=== PATIENT | male | born 1955 | race Caucasian/White ===

== ENCOUNTER 2017-10-27 11:00 | Day surgery (SDC) | payer OTHER ==
[~2017-10-27] VITALS: Ht 182.9 cm; Wt 97.5 kg
[~2017-10-27 11:00] MED LIST: CARVEDILOL25 MG PO; INDERAL LA80 MG PO; LOSARTAN POTASS25 MG PO; OMEPRAZOLE20 MG PO; PROPRANOLOL; SYNTHROID50 MCG PO
--- NOTE | 2017-10-27 13:10 | NUR ---
10/27/17 1310 Milagros Briggs 1258 PT ARRIVED TO PACU WITH NC IN PLACE AT 2L. RESP EVEN AND UNLABORED. PT WOKE TO TACTILE STIMULI AND REPORTED GAS/BLOATING IN ABD. PT ENCOURAGED TO PASS GAS/AIR. 1308 PT ABLE TO PASS LARGE AMOUNTS OF GAS/AIR. 1310 AT BEDSIDE, O2 REMOVED, O2 SAT 100%.
--- NOTE | 2017-10-27 18:57 | OR ---
[facility] [address] [place], [place] [address] Signed DATE OF OPERATION: 10/27/2017 SURGEON: Matthew Pal MD PREOPERATIVE DIAGNOSES: 1. History of tubular adenomas x3, May 2016. 2. Dilated cardiomyopathy. POSTOPERATIVE DIAGNOSES: 1. Sigmoid and left-sided diverticulosis. 2. Polyps x2 (transverse and hepatic flexure). PROCEDURE: Total colonoscopy to cecum with cold morcellation polypectomy x2. ANESTHESIA: Intravenous sedation, propofol infusion; Mo Fuentes CRNA. INDICATION: This 62-year-old white man is a former patient of Dr. Fernandez, now Dr. Torres. He underwent colonoscopy by me in May 2016, and was found to have three tubular adenomas. He was admitted for surveillance colonoscopy at this time. Notably, he is free of symptoms of bleeding, diarrhea, or constipation. He has developed a dilated cardiomyopathy and is managed expectantly currently. He is admitted to undergo colonoscopy. He understands the risks of bleeding, infection, and perforation. FINDINGS: The prep was excellent. Complete colonoscopy was undertaken to the cecum without question. Ileocecal valve and appendiceal orifice were normal. He had numerous diverticula of the sigmoid and left colon, and a few scattered diverticula more proximally. He had 2 small polyps, neither of them worrisome for malignancy. Both were excised fully, one in the mid transverse colon, the other in the hepatic flexure. DESCRIPTION OF PROCEDURE: The patient was brought to the endoscopy suite and placed in lateral decubitus position, given intravenous sedation to the point of slurred speech and nystagmus. Propofol infusional anesthesia was given by the smart energy specialist with full cardiopulmonary monitoring. Digital rectal examination was found to be normal. Electronically Signed By: MATTHEW PAL MD 10/27/17 1857 PATIENT NAME: AFSHAN GARCIA OPERATIVE REPORT DATE OF : 57 REPORT #: [id number] PHYSICIAN: MATTHEW PAL MD PCP: SALAZAR TORRES MD REPORT IS CONFIDENTIAL AND NOT TO BE RELEASED WITHOUT AUTHORIZATION [facility] [address] [place], [place] [address] Signed The Olympus video colonoscope was passed in the rectum and manipulated throughout the colon. Diverticula were noted in the sigmoid and left colon. At about the hepatic flexure, was a small relatively flat, but clearly a real polyp about 5 mm in size. This was excised with cold morcellation polypectomy technique. The scope was advanced beyond the hepatic flexure, ultimately to the cecum, which appeared normal. The scope was withdrawn. Careful examination throughout undertaken showing no sign of abnormality until the transverse colon in the left portion where another small polyp was noted. This was probably hyperplastic. It was excised with cold morcellation technique. Further withdrawal of scope confirmed numerous diverticula of the left colon and sigmoid. No sign of polyps there. Retroflexed view of the rectum was normal. Scope was straightened and withdrawn and removed, and the patient was taken to recovery room in good condition. CONCLUDING DIAGNOSES: 1. Polyps x2. 2. Diverticulosis. PLAN: Recommend repeat colonoscopy in 5 years or sooner if clinically indicated. Recommend high-fiber diet. He will return to the ongoing care of Dr. Torres. Matthew Pal MD JM/MODL /[id number] cc: Salazar Torres MD Copies: SALAZAR TORRES MD ~ Electronically Signed By: MATTHEW PAL MD 10/27/17 1857 PATIENT NAME: AFSHAN GARCIA OPERATIVE REPORT DATE OF : 57 REPORT #: [id number] PHYSICIAN: MATTHEW PAL MD PCP: SALAZAR TORRES MD REPORT IS CONFIDENTIAL AND NOT TO BE RELEASED WITHOUT AUTHORIZATION
== END 2017-10-27 13:40 | disposition home or self-care (01) ==
LOC: OPS 11:00 → DS 11:00 → OPS 12:00
PROVIDERS: Surgery
PROC: 0DBL8ZZ Excision of Transverse Colon, Via Natural or Artificial Opening Endoscopic (ICD-10-PCS; principal; 2017-10-27 12:00)
DX: Z12.11 Encounter for screening for malignant neoplasm of colon (principal); D12.3 Benign neoplasm of transverse colon; I42.0 Dilated cardiomyopathy; K21.0 Gastro-esophageal reflux disease with esophagitis; I10 Essential (primary) hypertension; Z86.010 Personal history of colon polyps; Z98.890 Other specified postprocedural states; Z79.899 Other long term (current) drug therapy
CPT/HCPCS: J2250; J2704; J7120

== ENCOUNTER 2021-04-02 08:46 | Day surgery (SDC) | payer OTHER ==
[~2021-04-02] VITALS: Ht 182.9 cm; Wt 102.3 kg
[~2021-04-02 08:46] MED LIST changes: +CRUTCH1 EACH MISC; +NORCO 5-325 TA1 EACH PO
--- NOTE | 2021-04-02 11:50 | NUR ---
04/02/21 1150 Mindy Estevez 1147 PATIENT ARRIVES TO PACU RESTING WITH EYES CLOSED. OPENS EYES WITH VERBAL STIMULI, BUT VERY DROWSY. RESP EVEN AND UNLABORED, NC OFF ON ARRIVAL TO PACU.
--- NOTE | 2021-04-04 19:31 | OR ---
[facility] [address] [place], [place] [address] Signed DATE OF OPERATION: 04/02/2021 SURGEON: Matthew Pal MD PREOPERATIVE DIAGNOSES: 1. History of polyps. 2. Cardiac disease including ejection fraction of 40% and mitral and aortic valvular disease. POSTOPERATIVE DIAGNOSES: 1. Scattered diverticula. 2. Small polyps x6. PROCEDURE: Total colonoscopy to cecum with cold snare polypectomy x2, cold morcellation polypectomy x2 and hot snare polypectomy x2. ANESTHESIA: Intravenous sedation propofol infusion, Ciera Ward CRNA INDICATIONS: This 65-year-old white man is a patient of Dr. Salazar Torres and well known to me from the past having undergone colonoscopy. Now, he is very high functioning. He does have issues related to aortic and mitral valvular disease. A more recent cardiac evaluation had showed an ejection fraction of 40%, though he does not have angina. He is symptom free as regards to colon. He is admitted to undergo colonoscopy. He understands the risks of bleeding, infection, and perforation. Additionally, the current review of literature shows no need for prophylactic antibiotics in mitral or aortic valvular disease without implanted or artificial valve. FINDINGS: The prep was excellent. Complete colonoscopy was undertaken to the cecum without question. He had scattered diverticula through the left colon including the sigmoid. He had six polyps in total, one at 50 cm, two in the proximal rectum, one in the sigmoid and two in the low rectum, all were excised completely. DESCRIPTION OF PROCEDURE: The patient was brought to the endoscopy suite and placed in lateral decubitus position given intravenous sedation with propofol infusional technique by the pony ride attendant, Ciera Ward CRNA. Electronically Signed By: MATTHEW PAL MD 04/04/211930 PATIENT NAME: AFSHAN GARCIA OPERATIVE REPORT DATE OF : 57 REPORT #: [id number] PHYSICIAN: MATTHEW PAL MD PCP: SALAZAR TORRES MD REPORT IS CONFIDENTIAL AND NOT TO BE RELEASED WITHOUT AUTHORIZATION [facility] [address] [place], [place] [address] Signed After satisfactory sedation, digital rectal examination was undertaken showing no sign of anorectal pathology. An Olympus video colonoscope was passed in the rectum and manipulated throughout the colon ultimately intubating the cecum itself. The ileocecal valve and appendiceal orifice were normal. The scope was withdrawn from that point and examination throughout showed no sign of abnormality until approximately 50 cm from the anal verge, where a small sessile polyp was noted, this was excised with cold snare technique. The specimen was passed for pathology. The scope was further withdrawn and diverticula once again seen in the left colon and sigmoid. At approximately the distal sigmoid was a small polyp, this was excised with cold morcellation technique. In the proximal rectum upon withdrawal of the scope, there were 2 relatively small polyps, both excised with cold snare technique and further withdrawal in the low rectum showed two slightly larger small polyps, both excised with hot snare polypectomy technique. All specimens were passed for permanent pathology. Retroflexed view was additionally performed showing no other findings. The scope was removed and the patient taken to the recovery room in good condition. CONCLUDING DIAGNOSES: 1. Polyps x6, all small. 2. Diverticulosis. PLAN: Recommend high-fiber diet. Also recommend repeat colonoscopy in 5 years, sooner if clinically indicated. He will return to the ongoing care of Dr. Salazar Torres. MD ANTHONY Mcgarry/MODL /[id number] cc: Salazar Torres MD Copies: SALAZAR TORRES MD Electronically Signed By: MATTHEW PAL MD 04/04/211930 PATIENT NAME: JOSEAFSHAN OPERATIVE REPORT DATE OF : 57 REPORT #: [id number] PHYSICIAN: MATTHEW PAL MD PCP: SALAZAR TORRES MD REPORT IS CONFIDENTIAL AND NOT TO BE RELEASED WITHOUT AUTHORIZATION [facility] [address] [place] [id number] Signed ~ Electronically Signed By: MATTHEW PAL MD 04/04/211930 PATIENT NAME: AFSHAN GARCIA OPERATIVE REPORT DATE OF : 57 REPORT #: [id number] PHYSICIAN: MATTHEW PAL MD PCP: SALAZAR TORRES MD REPORT IS CONFIDENTIAL AND NOT TO BE RELEASED WITHOUT AUTHORIZATION
== END 2021-04-02 12:25 | disposition home or self-care (01) ==
LOC: OPS 08:46 → DS 08:46 → OPS 09:05
PROVIDERS: ATTEND Surgery
PROC: 0DBN8ZX Excision of Sigmoid Colon, Via Natural or Artificial Opening Endoscopic, Diagnostic (ICD-10-PCS; 2021-04-02)
PROC: 0DBP8ZX Excision of Rectum, Via Natural or Artificial Opening Endoscopic, Diagnostic (ICD-10-PCS; principal; 2021-04-02 09:05)
DX: Z12.11 Encounter for screening for malignant neoplasm of colon (principal); D12.4 Benign neoplasm of descending colon; D12.7 Benign neoplasm of rectosigmoid junction; K57.30 Diverticulosis of large intestine without perforation or abscess without bleeding; E78.5 Hyperlipidemia, unspecified; I08.0 Rheumatic disorders of both mitral and aortic valves; Z20.822 Contact with and (suspected) exposure to COVID-19
CPT/HCPCS: J2001; J2704

== ENCOUNTER 2022-01-07 09:01 | Day surgery (SDC) | payer OTHER ==
[~2022-01-07] VITALS: Ht 182.9 cm; Wt 103.6 kg
--- NOTE | ~2022-01-07 | OR ---
[facility] [address] [place], [place] [address] Draft DATE OF OPERATION: 01/07/2022 SURGEON: Matthew Pal MD PREOPERATIVE DIAGNOSES: 1. Longstanding gastroesophageal reflux with hiatal hernia. 2. Episodic dysphagia. 3. History of cardiomyopathy and history of aortic valve replacement. POSTOPERATIVE DIAGNOSES: 1. Longstanding gastroesophageal reflux with hiatal hernia. 2. Episodic dysphagia. 3. History of cardiomyopathy and history of aortic valve replacement. 4. Mild chronic distal esophagitis without stricture, neoplasm, or Kapoor's epithelium. 5. Gastric polyps. PROCEDURE: Esophagogastroduodenoscopy with biopsy. ANESTHESIA: Intravenous sedation; fentanyl 100 mcg and Versed 4 mg. PREOPERATIVE ANTIBIOTICS: Ampicillin 1 g and gentamicin 80 mg. INDICATION: This 66-year-old white man is patient of Dr. Torres and well known to have longstanding gastroesophageal reflux related to hiatal hernia. His symptoms are very well controlled on PPI medication. He has been transitioned to H2 blockers. He has less control of symptoms with the Pepcid and with PPI medication. He is admitted at this time to undergo upper endoscopy to assess the distal esophagus in particular for Kapoor's epithelium stricture and neoplasm. He understands risk of bleeding, infection, and perforation and wished to proceed. FINDINGS: The esophagus looked reasonably normal. There was no sign of stricture, neoplasm or Kapoor's epithelium. There was a hiatal hernia, moderate in size. Numerous gastric polyps were noted, likely related to prior PPI use. The antrum and duodenum were normal. CLOtest was -30 minutes post procedure. PATIENT NAME: AFSHAN GARCIA OPERATIVE REPORT DATE OF : 57 REPORT #: [id number] PHYSICIAN: MATTHEW PAL MD PCP: SALAZAR TORRES MD REPORT IS CONFIDENTIAL AND NOT TO BE RELEASED WITHOUT AUTHORIZATION [facility] [address] [place] [phone] Draft DESCRIPTION OF PROCEDURE: The patient was brought to the endoscopy suite and placed in the lateral decubitus position, given lidocaine hypopharyngeal anesthesia. He was given intravenous sedation with Versed and fentanyl to point of slurred speech and nystagmus. A bite block was placed. An Olympus video upper endoscope was passed in the hypopharynx. The vocal cords appeared normal. Scope was advanced to the esophagus, throughout its length it appeared reasonably normal including the distal portion. The scope was advanced to the stomach, which was insufflated with air. Rugal folds were normal. There were numerous gastric polyps. The antrum was relatively normal. Pylorus was normal. Scope was passed through into the duodenum, which was also normal. Biopsies were obtained to assess for celiac disease. The scope was withdrawn and biopsies were taken of the antrum for both JEANNIE and pathologic testing. More proximally, a insurance representative gastric polyp was excised with pathologic confirmation of benign type polyp. Retroflexed view showed a moderate-sized hiatal hernia. The scope was withdrawn and biopsies taken of the distal and mid esophagus, though there was no evidence of Kapoor's epithelium, stricture, neoplasm or other untoward finding. The scope was removed and the patient taken recovery room in good condition. CONCLUDING DIAGNOSES: Hiatal hernia with mild chronic distal esophagitis without stricture, neoplasm, or Kapoor's epithelium. PLAN: We would recommend PPI medication, Prilosec 20 mg daily, jail is satisfactory based on current data. If he is adequately controlled in his symptoms with Pepcid 20 mg p.o. b.i.d., then that is certainly fine as well. He will return to the ongoing care of Dr. Torres. MD ANTHONY Mcgarry/PHILIPL /[id number] cc: Salazar Torres MD PATIENT NAME: JOSEAFSHAN ATIF OPERATIVE REPORT DATE OF : 57 REPORT #: [id number] PHYSICIAN: MATTHEW PAL MD PCP: SALAZAR TORRES MD REPORT IS CONFIDENTIAL AND NOT TO BE RELEASED WITHOUT AUTHORIZATION [facility] [address] [place] [phone] Draft Copies: SALAZAR TORRES MD ~ PATIENT NAME: AFSHAN GARCIA OPERATIVE REPORT DATE OF : 57 REPORT #: [id number] PHYSICIAN: MATTHEW PAL MD PCP: SALAZAR TORRES MD REPORT IS CONFIDENTIAL AND NOT TO BE RELEASED WITHOUT AUTHORIZATION
[~2022-01-07 09:01] MED LIST changes: +LISINOPRIL10 MG PO; +PEPCID40 MG PO
--- NOTE | 2022-01-07 11:17 | NUR ---
01/07/22 1117 Mindy Estevez 1114 PATIENT ARRIVES TO PACU SLEEPING. OPENS EYES WITH VERBAL STIMULI, BACK TO SLEEP WHEN NOT STIMULATED. RESP EVEN AND UNLABORED, NC AT 2 LITERS.
--- NOTE | 2022-01-09 13:39 | PATH ---
[facility] [address] [place], [place] [address] Signed SPECIMEN(S): A DUODENAL BIOPSY SPECIMEN(S): B ANTRUM/ANTRAL BIOPSY SPECIMEN(S): C STOMACH POLYP SPECIMEN(S): D LOWER ESOPHAGEAL BIOPSY SPECIMEN(S): E MIDDLEESOPHAGEAL BIOPSY SPECIMEN SOURCE: A. DUODENAL BIOPSY B. ANTRUM/ANTRAL BIOPSY C. STOMACH POLYP D. LOWER ESOPHAGEAL BIOPSY E. MIDDLEESOPHAGEAL BIOPSY CLINICAL HISTORY: GERD; esophagitis; hiatal hernia; dysphagia. Postop diagnosis: Hiatal hernia, gastric polyps FINAL PATHOLOGIC DIAGNOSIS: A. Duodenum, biopsies: - Benign duodenal mucosa, negative for significantly increased intraepithelial lymphocytosis and villous blunting. B. Antrum/pylorus, biopsies: - Benign gastric mucosa. - Negative for intestinal metaplasia. - Negative for Helicobacter pylori organisms on routine stain. C. Stomach polyp, polypectomy: - Fragments of fundic gland polyp. - Negative for dysplasia. D. Lower esophagus, biopsies: - Acute esophagitis. E. Mid esophagus, biopsies: - Acute esophagitis; see Comment. COMMENT: A properly controlled special stain has been ordered for fungal organisms. An addendum report will be submitted. DDF:[id number] MICROSCOPIC EXAMINATION: Histologic sections of all submitted blocks are examined by light microscopy. These findings, together with the gross examination, support the pathologic PATIENT NAME: AFSHAN GARCIA PATHOLOGY DATE OF : 57 REPORT #: [id number] PHYSICIAN: CHRIS BURNETT PCP: VIPUL MANCERA MD REPORT IS CONFIDENTIAL AND NOT TO BE RELEASED WITHOUT AUTHORIZATION [facility] [address] [place], [place] [address] Signed diagnosis. GROSS DESCRIPTION: Five specimens are received in five containers, labeled "DL." A. The specimen, labeled "DL, 1," and designated on the requisition "duodenum biopsy," is received in formalin and consists of two jennings soft tissue fragments that measure 0.1 and 0.6 cm in greatest dimension. The specimen is entirely submitted in cassette (A1). B. The specimen, labeled "DL, 2," and designated on the requisition "antrum/pylorus biopsy," is received in formalin and consists of one jennings soft tissue fragment that measures 0.6 cm in greatest dimension. The specimen is entirely submitted in cassette (B1). C. The specimen, labeled "DL, 3," and designated on the requisition "stomach polypectomy," is received in formalin and consists of two jennings soft tissue fragments that measure 0.4 cm in greatest dimension. The specimen is entirely submitted in cassette (C1). D. The specimen, labeled "DL, 4," and designated on the requisition "lower esophagus biopsy," is received in formalin and consists of multiple jennings-white soft tissue fragments that measure less than 0.1 up to 0.4 cm in greatest dimension. The specimen is entirely submitted in cassette (D1). E. The specimen, labeled "DL, 5," and designated on the requisition "mid esophagus biopsy," is received in formalin and consists of multiple jennings-white soft tissue fragments that measure less than 0.1 up to 0.4 cm in greatest dimension. The specimen is entirely submitted in cassette (E1). AI (under the direct supervision of a pathologist) The Gross Description was prepared using a voice recognition system. The report was reviewed for accuracy; however, sound-alike word errors, addition and/or deletions may occur. If there is any question about this report, please contact Client Services. PERFORMING LABORATORY: The technical component was performed by [facility], [facility] [place] [address] (CLIA# [id number]). Professional interpretation was performed by [facility], [facility], [address] [place] [address] (CLIA#: [id number]) Diagnostician: Afshan Perez DO Pathologist PATIENT NAME: AFSHAN GARCIA PATHOLOGY DATE OF : 57 REPORT #: [id number] PHYSICIAN: CHRIS BURNETT PCP: VIPUL MANCERA MD REPORT IS CONFIDENTIAL AND NOT TO BE RELEASED WITHOUT AUTHORIZATION [facility] [address] [facility] [place] [address] Signed Electronically Signed 01/09/2022 Copies: ~ PATIENT NAME: AFSHAN GARCIA PATHOLOGY DATE OF : 57 REPORT #: [id number] PHYSICIAN: CHRIS BURNETT PCP: VIPUL MANCERA MD REPORT IS CONFIDENTIAL AND NOT TO BE RELEASED WITHOUT AUTHORIZATION
== END 2022-01-07 12:00 | disposition home or self-care (01) ==
LOC: OPS 09:01 → DS 09:08 → OPS 09:45 → DS 12:00 → OPS 12:00
PROVIDERS: ATTEND Surgery
PROC: 0DB68ZZ Excision of Stomach, Via Natural or Artificial Opening Endoscopic (ICD-10-PCS; principal; 2022-01-07 09:45)
DX: K21.00 Gastro-esophageal reflux disease with esophagitis, without bleeding (principal); K44.9 Diaphragmatic hernia without obstruction or gangrene; I42.9 Cardiomyopathy, unspecified; K31.7 Polyp of stomach and duodenum; I05.8 Other rheumatic mitral valve diseases; G47.30 Sleep apnea, unspecified; I10 Essential (primary) hypertension; Z95.2 Presence of prosthetic heart valve; Z86.010 Personal history of colon polyps
CPT/HCPCS: G0500; J0290; J1580; J2250; J3010; J7121